=== PATIENT | female | born 2000 | race African-American/Black ===

== ENCOUNTER 2022-10-08 02:19 | Emergency (ER) | payer SELFPAY ==
[~2022-10-08] VITALS: Ht 170.2 cm; Wt 134.0 kg
[2022-10-08 02:23] VITALS: BP 113/68
== END 2022-10-08 06:00 | disposition left against medical advice (07) ==
LOC: ER 02:19
DX: Z53.21 Procedure and treatment not carried out due to patient leaving prior to being seen by health care provider (principal)